=== PATIENT | male | born 1980 | race Caucasian/White ===

== ENCOUNTER 2016-04-29 06:24 | Emergency (ER) | payer MEDICAID ==
--- NOTE | 2016-04-29 07:35 | EDDOCDS ---
Physician Documentation [facility] Name: Luis Manuel Oliva Age: 35 yrs Sex: Male : 1980 Arrival Date: 04/29/2016 Time: 06:24 Bed I4 / M4 Private MD: Disposition: 04/29/16 07:28 Discharged to Home/Self Care. Impression: Dental caries. - Condition is Stable. - Discharge Instructions: Dental Pain. - Prescriptions for Amoxicillin 875 mg Oral Tablet - take 1 tablet by ORAL route every 12 hours for 10 days; 20 tablet. Ibuprofen 800 mg Oral Tablet - take 1 tablet by ORAL route every 8 hours As needed take with food; 30 tablet. - Medication Reconciliation, Local Pharmacy Hours form. - Follow up: Emergency Department; When: As needed; Reason: Fever > 102F, Trouble breathing, Worsening of conditions. Follow up: Private Physician; When: Call to arrange an appointment; Reason: Recheck today's complaints. - Problem is new. - Symptoms are unchanged. Historical: - Allergies: No known drug Allergies; - Home Meds: 1. none - PMHx: none; - PSHx: Appendectomy; Cholecystectomy; - Social history: Smoking status: Patient uses tobacco products, light tobacco smoker. No barriers to communication noted, The patient speaks fluent Bolivian, Speaks appropriately for age. - Family history: Not pertinent. - : The pt / caregiver states he / she is not on anticoagulants. Home medication list is obtained from the patient. - Exposure Risk Screening:: None identified. Vital Signs: 04/29 06:31 BP 185 / 106; Pulse 72; Resp 16; Temp 99.5; Pulse Ox 98% on R/A; Weight 100 kg / 220.46 cz lbs; Height 5 ft. 6 in. (167.64 cm); 06:31 Body Mass Index 35.58 (100.00 kg, 167.64 cm) cz Signatures: Elsie Rivera RN RN dls Jignesh Martinez RN RN cz Gaston Mallory PA-C PA-C ar2 MTDD
--- NOTE | 2016-04-29 07:35 | EDDOCDS ---
Nurse's Notes [facility] Name: Luis Manuel Oliva Age: 35 yrs Sex: Male : 1980 Arrival Date: 04/29/2016 Time: 06:24 Bed I4 / M4 Private MD: Diagnosis: Dental caries Presentation: 04/29 06:28 Presenting complaint: Patient states: he has had right upper side dental pain for cz several days pt states pain actually started on left side of face. Adult Sepsis Screening: The patient does not have new or worsening altered mentation. Patient's respiratory rate is less than 22. Systolic blood pressure is greater than 100. Patient has a qSOFA score of 0- Negative Sepsis Screen. Suicide/Homicide risk assessment- the patient denies having any suicidal and/or homicidal ideations and does not present with any other emotional, behavioral or mental health complaints. Status: Patient is not a hvac services professional or dependent. Transition of care: patient was not received from another setting of care. 06:28 Acuity: NICOLE Level 5 cz 06:28 Method Of Arrival: Walkin/Carried/Asstd cz Triage Assessment: 06:31 General: Appears uncomfortable. Pain: Location: right cheek and right jaw Pain cz currently is 10 out of 10 on a pain scale. Pt Declines HIV testing. Historical: - Allergies: No known drug Allergies; - Home Meds: 1. none - PMHx: none; - PSHx: Appendectomy; Cholecystectomy; - Social history: Smoking status: Patient uses tobacco products, light tobacco smoker. No barriers to communication noted, The patient speaks fluent Luxembourger, Speaks appropriately for age. - Family history: Not pertinent. - : The pt / caregiver states he / she is not on anticoagulants. Home medication list is obtained from the patient. - Exposure Risk Screening:: None identified. Screenin:28 Screening information is obtained from the patient. Primary language is Luxembourger. Fall jam1 risk: No risks identified. Assistance ADL's: requires no assistance with activities of daily living. Abuse/DV Screen: The patient / caregiver reports he/she is: not in a situation that causes fear, pain or injury. Nutritional screening: No deficits noted. Exposure Risk Screening: None identified. Advance Directives: Currently, there is no health care proxy. There is no active DNR order. There is no living will. There is no Power of Lining Ironer. Advance directive information has not previously been placed in an [facility] medical record. Further advance directive information is declined. home support is adequate. Assessment: 07:32 General: Appears uncomfortable, well developed, well nourished, Behavior is dls cooperative. Awake, alert, oriented. Skin warm and dry. Moves all extremities. Bilateral breath sounds clear. Respirations unlabored. Abdomen soft, non-tender. No apparent distress. The patient / caregiver is instructed regarding the plan of care and ED course. Vital Signs: 06:31 BP 185 / 106; Pulse 72; Resp 16; Temp 99.5; Pulse Ox 98% on R/A; Weight 100 kg; Height cz 5 ft. 6 in. (167.64 cm); 06:31 Body Mass Index 35.58 (100.00 kg, 167.64 cm) cz Vitals: 06:31 Log In Time: April 29, 2016 at 06:24. cz ED Course: 06:25 Patient visited by Nohemy Pryor. gjb 06:25 Patient moved to Waiting gjb 06:28 Patient moved to Triage 1 cz 06:31 Triage Initiated cz 06:36 Patient moved to Pre RCE cz 06:58 Patient moved to I4 / M4 jam1 07:05 Pt greeted and oriented to ED. Patient advised of names of staff involved in care, jam1 location of call hardy, wait times and NPO status. Patient has correct armband on for positive identification. Bed in low position. Call light in reach. Side rails up X 1. Door closed. 07:22 Gaston Mallory [facility]-C [facility]. ar2 07:22 Fransisco Medina MD is Attending Physician. ar2 07:22 Patient visited by Gaston Mallory PA-C. ar2 07:34 No IV's were initiated during this patient's visit. No procedures done that require dls assistance. Order Results: There are currently no results for this order. Outcome: 07:28 Discharge ordered by Provider. ar2 07:33 The following High Risk Discharge criteria are identified: None. Discharged to home dls ambulatory. Condition: stable. Discharge instructions given to patient, Instructed on discharge instructions, follow up and referral plans. medication usage, Demonstrated understanding of instructions, medications, Pt was receptive of discharge instructions/ teaching. Prescriptions given X 2. No special radiology studies were completed. 07:34 Discharge Assessment: Patient awake, alert and oriented x 3. No cognitive and/or dls functional deficits noted. Patient verbalized understanding of disposition instructions. patient administered narcotics - no. The following High Risk Discharge criteria are identified: None. Discharged to home ambulatory. Property sent home with patient. :34 Patient left the ED. dls Signatures: Elsie Rivera RN RN Jignesh Cook RN RN cz Murphy, Jane, [employer]MEL[employer] PROGRAM DIRECTOR [email or web address] Gaston Mallory PA-C PA-C ar2 Beck, Gabriela gjb MTDD
--- NOTE | 2016-05-01 08:35 | EDDOCDS ---
Physician Documentation [facility] Name: Luis Manuel Oliva Age: 35 yrs Sex: Male : 1980 Arrival Date: 04/29/2016 Time: 06:24 Bed I4 / M4 Private MD: Disposition: 04/29/16 07:28 Discharged to Home/Self Care. Impression: Dental caries. - Condition is Stable. - Discharge Instructions: Dental Pain. - Prescriptions for Amoxicillin 875 mg Oral Tablet - take 1 tablet by ORAL route every 12 hours for 10 days; 20 tablet. Ibuprofen 800 mg Oral Tablet - take 1 tablet by ORAL route every 8 hours As needed take with food; 30 tablet. - Medication Reconciliation, Local Pharmacy Hours form. - Follow up: Emergency Department; When: As needed; Reason: Fever > 102F, Trouble breathing, Worsening of conditions. Follow up: Private Physician; When: Call to arrange an appointment; Reason: Recheck today's complaints. - Problem is new. - Symptoms are unchanged. Historical: - Allergies: No known drug Allergies; - Home Meds: 1. none - PMHx: none; - PSHx: Appendectomy; Cholecystectomy; - Social history: Smoking status: Patient uses tobacco products, light tobacco smoker. No barriers to communication noted, The patient speaks fluent Uruguayan, Speaks appropriately for age. - Family history: Not pertinent. - : The pt / caregiver states he / she is not on anticoagulants. Home medication list is obtained from the patient. - Exposure Risk Screening:: None identified. Vital Signs: 04/29 06:31 BP 185 / 106; Pulse 72; Resp 16; Temp 99.5; Pulse Ox 98% on R/A; Weight 100 kg / 220.46 cz lbs; Height 5 ft. 6 in. (167.64 cm); 06:31 Body Mass Index 35.58 (100.00 kg, 167.64 cm) cz MDM: 07:53 Financial registration complete. mpb 07:54 [facility] Payment Agreement was scanned into [employer] and attached to record. mpb 20:55 T-Sheet-- Draft Copy was scanned into [employer] and attached to record. klr Signatures: Elsie Rivera RN RN dls Jignesh Martinez RN RN cz Gaston Mallory, CHAS PALayton ar2 Jamshid Hussein, Reg Reg mpb Alexandra Bhakta The chart was reviewed and I authenticate all verbal orders and agree with the evaluation and treatment provided.Attachments: 07:54 [facility] Payment Agreement mpb 20:55 T-Sheet-- Draft Copy [email or web address] Chart Complete MTDD
--- NOTE | 2016-05-01 08:35 | EDDOCDS ---
Physician Documentation [facility] Name: Luis Manuel Oliva Age: 35 yrs Sex: Male : 1980 Arrival Date: 04/29/2016 Time: 06:24 Bed I4 / M4 Private MD: Disposition: 04/29/16 07:28 Discharged to Home/Self Care. Impression: Dental caries. - Condition is Stable. - Discharge Instructions: Dental Pain. - Prescriptions for Amoxicillin 875 mg Oral Tablet - take 1 tablet by ORAL route every 12 hours for 10 days; 20 tablet. Ibuprofen 800 mg Oral Tablet - take 1 tablet by ORAL route every 8 hours As needed take with food; 30 tablet. - Medication Reconciliation, Local Pharmacy Hours form. - Follow up: Emergency Department; When: As needed; Reason: Fever > 102F, Trouble breathing, Worsening of conditions. Follow up: Private Physician; When: Call to arrange an appointment; Reason: Recheck today's complaints. - Problem is new. - Symptoms are unchanged. Historical: - Allergies: No known drug Allergies; - Home Meds: 1. none - PMHx: none; - PSHx: Appendectomy; Cholecystectomy; - Social history: Smoking status: Patient uses tobacco products, light tobacco smoker. No barriers to communication noted, The patient speaks fluent [place] Citizen, Speaks appropriately for age. - Family history: Not pertinent. - : The pt / caregiver states he / she is not on anticoagulants. Home medication list is obtained from the patient. - Exposure Risk Screening:: None identified. Vital Signs: 04/29 06:31 BP 185 / 106; Pulse 72; Resp 16; Temp 99.5; Pulse Ox 98% on R/A; Weight 100 kg / 220.46 cz lbs; Height 5 ft. 6 in. (167.64 cm); 06:31 Body Mass Index 35.58 (100.00 kg, 167.64 cm) cz MDM: 07:53 Financial registration complete. mpb 07:54 [facility] Payment Agreement was scanned into [employer] and attached to record. mpb 20:55 T-Sheet-- Draft Copy was scanned into [employer] and attached to record. klr Signatures: Elsie Rivera RN RN dls Jignesh Martinez RN RN cz Gaston Mallory, CHAS PALayton ar2 Jamshid Hussein, Reg Reg mpb Alexandra Bhakta The chart was reviewed and I authenticate all verbal orders and agree with the evaluation and treatment provided.Attachments: 07:54 [facility] Payment Agreement mpb 20:55 T-Sheet-- Draft Copy klmarylu Chart Complete MTDD
--- NOTE | 2016-05-01 08:36 | EDDOCDS ---
Nurse's Notes [facility] Name: Luis Manuel Oliva Age: 35 yrs Sex: Male : 1980 Arrival Date: 04/29/2016 Time: 06:24 Bed I4 / M4 Private MD: Diagnosis: Dental caries Presentation: 04/29 06:28 Presenting complaint: Patient states: he has had right upper side dental pain for cz several days pt states pain actually started on left side of face. Adult Sepsis Screening: The patient does not have new or worsening altered mentation. Patient's respiratory rate is less than 22. Systolic blood pressure is greater than 100. Patient has a qSOFA score of 0- Negative Sepsis Screen. Suicide/Homicide risk assessment- the patient denies having any suicidal and/or homicidal ideations and does not present with any other emotional, behavioral or mental health complaints. Status: Patient is not a account manager forest service or dependent. Transition of care: patient was not received from another setting of care. 06:28 Acuity: NICOLE Level 5 cz 06:28 Method Of Arrival: Walkin/Carried/Asstd cz Triage Assessment: 06:31 General: Appears uncomfortable. Pain: Location: right cheek and right jaw Pain cz currently is 10 out of 10 on a pain scale. Pt Declines HIV testing. Historical: - Allergies: No known drug Allergies; - Home Meds: 1. none - PMHx: none; - PSHx: Appendectomy; Cholecystectomy; - Social history: Smoking status: Patient uses tobacco products, light tobacco smoker. No barriers to communication noted, The patient speaks fluent Romanian, Speaks appropriately for age. - Family history: Not pertinent. - : The pt / caregiver states he / she is not on anticoagulants. Home medication list is obtained from the patient. - Exposure Risk Screening:: None identified. Screenin:28 Screening information is obtained from the patient. Primary language is Romanian. Fall jam1 risk: No risks identified. Assistance ADL's: requires no assistance with activities of daily living. Abuse/DV Screen: The patient / caregiver reports he/she is: not in a situation that causes fear, pain or injury. Nutritional screening: No deficits noted. Exposure Risk Screening: None identified. Advance Directives: Currently, there is no health care proxy. There is no active DNR order. There is no living will. There is no Power of Supervisor Solder Making. Advance directive information has not previously been placed in an [facility] medical record. Further advance directive information is declined. home support is adequate. Assessment: 07:32 General: Appears uncomfortable, well developed, well nourished, Behavior is dls cooperative. Awake, alert, oriented. Skin warm and dry. Moves all extremities. Bilateral breath sounds clear. Respirations unlabored. Abdomen soft, non-tender. No apparent distress. The patient / caregiver is instructed regarding the plan of care and ED course. Vital Signs: 06:31 BP 185 / 106; Pulse 72; Resp 16; Temp 99.5; Pulse Ox 98% on R/A; Weight 100 kg; Height cz 5 ft. 6 in. (167.64 cm); 06:31 Body Mass Index 35.58 (100.00 kg, 167.64 cm) cz Vitals: 06:31 Log In Time: April 29, 2016 at 06:24. cz ED Course: 06:25 Patient visited by Nohemy Pryor. gjb 06:25 Patient moved to Waiting gjb 06:28 Patient moved to Triage 1 cz 06:31 Triage Initiated cz 06:36 Patient moved to Pre RCE cz 06:58 Patient moved to I4 / M4 jam1 07:05 Pt greeted and oriented to ED. Patient advised of names of staff involved in care, jam1 location of call hardy, wait times and NPO status. Patient has correct armband on for positive identification. Bed in low position. Call light in reach. Side rails up X 1. Door closed. 07:22 Gaston Mallory [facility] ar2 07:22 Fransisco Medina MD is Attending Physician. ar2 07:22 Patient visited by Gaston Mallory PA-C. ar2 07:34 No IV's were initiated during this patient's visit. No procedures done that require dls assistance. 07:54 [facility] Payment Agreement was scanned into [employer] and attached to record. mpb 20:55 T-Sheet-- Draft Copy was scanned into [employer] and attached to record. klr Order Results: There are currently no results for this order. Outcome: 07:28 Discharge ordered by Provider. ar2 07:33 The following High Risk Discharge criteria are identified: None. Discharged to home dls ambulatory. Condition: stable. Discharge instructions given to patient, Instructed on discharge instructions, follow up and referral plans. medication usage, Demonstrated understanding of instructions, medications, Pt was receptive of discharge instructions/ teaching. Prescriptions given X 2. No special radiology studies were completed. 07:34 Discharge Assessment: Patient awake, alert and oriented x 3. No cognitive and/or dls functional deficits noted. Patient verbalized understanding of disposition instructions. patient administered narcotics - no. The following High Risk Discharge criteria are identified: None. Discharged to home ambulatory. Property sent home with patient. 07:34 Patient left the ED. dls Signatures: Elsie Rivera, RN RN dls Jignesh Martinez, RN RN cz Andie Reyes, MANAGER INSIDE MANAGER INSIDE jam1 Gaston Mallory PAGalaC PA-C ar2 Nohemy Pryor Michael, Alexandra Ibrahim Chart Complete MTDTrav
== END 2016-04-29 07:34 | disposition home or self-care (01) ==
LOC: M ED 06:24
DX: K02.9 Dental caries, unspecified (principal); F17.210 Nicotine dependence, cigarettes, uncomplicated

== ENCOUNTER 2016-09-10 12:13 | Emergency (ER) | payer MEDICAID, OTHER ==
[~2016-09-10] VITALS: Ht 167.6 cm; Wt 90.7 kg
[2016-09-10 12:13] VITALS: BP 113/83
[2016-09-10] MEDS ORDERED: LIDOCAINE 1% MDV 20ML VIAL SC ONE (14:00)
[2016-09-10] MEDS ORDERED: IBUP600T26 PO (14:40)
[2016-09-10] MEDS ORDERED: BACT800T5 PO (14:40)
== END 2016-09-10 14:59 | disposition home or self-care (01) ==
LOC: M ED 13:30
DX: L05.01 Pilonidal cyst with abscess (principal); B95.2 Enterococcus as the cause of diseases classified elsewhere